=== PATIENT | female | born 1990 | race African-American/Black ===

== ENCOUNTER 2024-01-25 15:11 | Emergency (ER) | payer SELFPAY ==
[~2024-01-25] VITALS: Ht 157.5 cm; Wt 64.0 kg
[2024-01-25 15:17] VITALS: BP 133/89; PULSE 90; RESP 16; TEMP 98.3; O2SAT 100
== END 2024-01-25 19:07 | disposition home or self-care (01) ==
LOC: ER 15:11
DX: M79.642 Pain in left hand (principal); M25.532 Pain in left wrist; Y04.0XXA Assault by unarmed brawl or fight, initial encounter; Y93.89 Activity, other specified; Y92.89 Other specified places as the place of occurrence of the external cause; Y99.8 Other external cause status
CPT/HCPCS: 29125; 73090; 73110; 73130; 99284